=== PATIENT | male | born 1950 | race Caucasian/White ===

== ENCOUNTER → 2017-08-22 10:13 | Outpatient (CLI) | payer MEDICARE, OTHER, SELFPAY ==
--- NOTE | 2017-08-22 10:22 | CI_ITS ---
Cerebrovascular Exam Indications: Follow-up carotid 433.10. IMPRESSIONS 1. The bilateral vertebral arteries are patent with normal antegrade flow. 2. Study suggests 20-49% stenosis involving the right internal carotid artery. 3. Study suggests 50-69% stenosis involving the left internal carotid artery. Labs, prior tests, procedures, and surgery: Right endarterectomy. Labs, prior tests, procedures, and surgery: Right endarterectomy. Carotid duplex study. Complete study and Doppler flow study including spectral analysis, color and sainz scale imaging. Height: Height: 182.9cm. Height: 72in. Weight: Weight: 69.9kg. Weight: 153.7lb. Body mass index: BMI: 20.9kg/m^2. Body surface area: BSA: 1.88m^2. Location: Vascular laboratory. Patient status: Outpatient. Tables: Arterial flow: + +--------+--------+ Location V sys V ed + +--------+--------+ Right CCA - proximal 85.5cm/s 28.9cm/s + +--------+--------+ Right CCA - distal 76.7cm/s 26.4cm/s + +--------+--------+ Right ECA 264cm/s -------- + +--------+--------+ Right ICA - proximal 114cm/s 36.3cm/s + +--------+--------+ Right ICA - mid 71.2cm/s 29.5cm/s + +--------+--------+ Right ICA - distal 87.9cm/s 36.3cm/s + +--------+--------+ Right vertebral 34.2cm/s -------- + +--------+--------+ Left CCA - proximal 101cm/s 26.5cm/s + +--------+--------+ Left CCA - distal 105cm/s 32.1cm/s + +--------+--------+ Left ECA 131cm/s -------- + +--------+--------+ Left ICA - proximal 144cm/s 46.1cm/s + +--------+--------+ Left ICA - mid 93.7cm/s 37.5cm/s + +--------+--------+ Left ICA - distal 71.1cm/s 27cm/s + +--------+--------+ Left vertebral 62.9cm/s -------- + +--------+--------+ Velocity ratios: + + + + + + Right, V sys Right, V ed Left, V sys Left, V ed + + + + + + Max ICA/dist CCA 1.49 1.38 1.37 1.44 + + + + + + (Report amended ) Electronically signed by: Thiago Beckham [id number]
== END ==
PROVIDERS: Family Provider Family Medicine; PCP Family Medicine; Visit Provider Thoracic Surgery (Cardiothoracic Vascular Surgery)
DX: I65.23 Occlusion and stenosis of bilateral carotid arteries (principal)
CPT/HCPCS: 93880

== ENCOUNTER → 2018-01-16 08:14 | Outpatient (POV) | payer MEDICARE, OTHER, SELFPAY | PROVIDERS: Visit Provider Physician Assistant | DX: Z00.00 Encounter for general adult medical examination without abnormal findings (principal) ==

== ENCOUNTER → 2018-02-22 07:33 | Outpatient (CLI) | payer MEDICARE, OTHER, SELFPAY ==
[2018-02-22 09:59] LABS: Cholesterol 186 mg/dL (140-200); HDL Cholesterol 63 mg/dL (27-67); LDL Cholesterol 114 mg/dL (0-130); Thyroid Stimulating Hormone 1.62 uIU/ml (0.358-3.740); Triglycerides 43 mg/dL (30-200); VLDL Cholesterol 9 mg/dL (0-40)
== END ==
PROVIDERS: PCP Family Medicine; Visit Provider Internal Medicine Cardiovascular Disease
DX: E78.5 Hyperlipidemia, unspecified (principal); Z12.5 Encounter for screening for malignant neoplasm of prostate
CPT/HCPCS: 36415; 80061; 84443; G0103

== ENCOUNTER → 2018-04-07 09:53 | Outpatient (CLI) | payer MEDICARE, OTHER, SELFPAY ==
--- NOTE | 2018-04-07 10:06 | XR_ITS ---
XR hip RT 2-3V w/pelvis HISTORY: ITS.REASON: RIGHT HIP PAIN ORDERING PHYSICIAN: Edgar Smith MD PATIENT AGE: 68 years COMPARISON: None FINDINGS: There are mild osteoarthritic changes of the right hip with decrease in joint space medially and mild osteophyte formation along the infra aspect of the acetabulum. No acute fracture or dislocation is evident. There are multiple calcific densities overlying the scrotum and the left greater trochanteric region. IMPRESSION: Mild osteoarthritis of the right hip
--- NOTE | 2018-04-07 10:06 | XR_ITS ---
EXAM: XR lumbar spine min 4V HISTORY: ITS.REASON: RIGHT HIP PAIN ORDERING PHYSICIAN: Edgar Smith MD PATIENT AGE: 68 years COMPARISON: None FINDINGS: Normal alignment. No fracture or dislocation. No lytic or blastic change. Mild degenerative disc disease L5-S1. Mild facet arthritic changes L5-S1. Minimal lumbar curvature convex left. There are some calcific densities noted left upper quadrant and could be due to renal stones. IMPRESSION: Mild osteoarthritis. Mild facet arthritic change L5-S1. Possible left nephrolithiasis
== END ==
PROVIDERS: PCP Family Medicine; Visit Provider Family Medicine
DX: M25.551 Pain in right hip (principal); M54.5 Low back pain
CPT/HCPCS: 72110; 73502

== ENCOUNTER → 2018-08-02 10:55 | Outpatient (CLI) | payer MEDICARE, OTHER, SELFPAY ==
--- NOTE | 2018-08-02 11:01 | XR_ITS ---
XR chest 2V HISTORY: ITS.REASON: COUGH ORDERING PHYSICIAN: Isidro Fu MD PATIENT AGE: 68 years COMPARISON: None FINDINGS: There has been a prior CABG. There is normal heart size. Cardiac apex is somewhat turned. There is evidence of old granulomatous disease. No lobar consolidation or collapse is evident. No acute bony findings. IMPRESSION: No acute finding. Postsurgical changes
== END ==
PROVIDERS: PCP Family Medicine; Visit Provider Family Medicine
DX: R05 Cough (principal)
CPT/HCPCS: 71046

== ENCOUNTER → 2019-04-16 12:24 | Outpatient (CLI) | payer MEDICARE, OTHER, SELFPAY ==
[2019-04-16 14:23] LABS: Cholesterol 134 mg/dL (140-200); HDL Cholesterol 67 mg/dL (27-67); LDL Cholesterol 62 mg/dL (0-130); Triglycerides 26 mg/dL (30-200); VLDL Cholesterol 5 mg/dL (0-40)
== END ==
PROVIDERS: Visit Provider Internal Medicine Cardiovascular Disease
DX: E78.5 Hyperlipidemia, unspecified (principal)
CPT/HCPCS: 36415; 80061

== ENCOUNTER → 2019-08-07 08:07 | Outpatient (POV) | payer MEDICARE, SELFPAY | PROVIDERS: PCP Dermatology; Visit Provider Dermatology | DX: Z00.00 Encounter for general adult medical examination without abnormal findings (principal) ==

== ENCOUNTER → 2020-02-19 07:50 | Outpatient (POV) | payer MEDICARE, SELFPAY | PROVIDERS: Visit Provider Dermatology | DX: Z00.00 Encounter for general adult medical examination without abnormal findings (principal) ==

== ENCOUNTER → 2020-02-21 16:13 | Outpatient (CLI) | payer MEDICARE, SELFPAY ==
[2020-02-21 17:32] LABS: Alanine Aminotransferase 31 U/L (12-78); Albumin/Globulin Ratio 1.7 (1.1-1.8); Alkaline Phosphatase 137 U/L (38-126); Anion Gap 10.7 mEq/L (5-15); Aspartate Amino Transferase 30 U/L (17-59); Bilirubin,Total 0.9 mg/dl (0.2-1.3); Blood Urea Nitrogen 16 mg/dl (9-20); Calcium 9.3 mg/dl (8.4-10.2); Carbon Dioxide 32 mmol/L (22.0-30.0); Chloride 104 mmol/L (98-107); Chol/HDL Ratio 2.3 (1-3.5); Cholesterol 129 mg/dl (140-200); Estimated Glomerular Filt Rate 95 ml/min (>60); GFR (African American) 115 ML/MIN (>60); Globulin 2.4 g/dL (1.3-3.2); Glucose 114 mg/dl (74-100); HDL Cholesterol 57 mg/dl (40-60); Potassium 4.7 mmoL/L (3.5-5.1); Sodium 142 mmol/L (136-145); Total Protein,Serum 6.4 g/dl (6.3-8.2); Triglycerides 59 mg/dl (30-150); VLDL Cholesterol 12 mg/dL (0-40)
[2020-02-21 17:43] LABS: Direct LDL Cholesterol 70.86 mg/dL (100-129)
[2020-02-21 17:51] LABS: Ferritin 25.2 ng/ml (17.9-464)
[2020-02-21 18:04] LABS: Prostate Specific Ag Screen 2.7 ng/ml (0.0-4.0)
== END ==
PROVIDERS: Internal Medicine Cardiovascular Disease; Visit Provider Specialist
DX: E83.10 Disorder of iron metabolism, unspecified (principal); G47.61 Periodic limb movement disorder; Z79.899 Other long term (current) drug therapy; Z12.5 Encounter for screening for malignant neoplasm of prostate
CPT/HCPCS: 36415; 80053; 80061; 82728; G0103

== ENCOUNTER → 2020-08-19 08:35 | Outpatient (POV) | payer MEDICARE, OTHER, SELFPAY | PROVIDERS: Visit Provider Dermatology | DX: Z00.00 Encounter for general adult medical examination without abnormal findings (principal) ==

== ENCOUNTER → 2021-01-09 16:01 | Outpatient (CLI) | payer MEDICARE, OTHER, SELFPAY ==
[2021-01-09 17:19] LABS: Basophils # 0.1 K/mm3 (0-0.2); Basophils % 0.7 % (0.1-2.0); Eosinophils # 0.1 K/mm3 (0.0-0.4); Eosinophils % 1.2 % (0.1-12.0); Hemoglobin 16.1 g/dL (14.1-18.0); Lymphocytes # 1.9 K/mm3 (0.7-4.5); Lymphocytes % 26.4 % (10-50); Mean Corpuscular HGB Conc 34.3 g/dL (31.8-35.4); Mean Corpuscular Hemoglobin 31.3 pg (27.0-31.2); Mean Platelet Volume 7.9 fl (7.4-10.4); Monocytes # 0.5 K/mm3 (0.1-1.0); Neutrophils # 4.7 K/mm3 (1.8-7.8); Neutrophils % 64.8 % (37.0-80.0); Platelet Count 209 K/mm3 (142-424); Red Blood Count 5.16 M/mm3 (4.60-6.20); Red Cell Distribution Width 13.6 % (11.5-17.5); White Blood Count 7.2 K/mm3 (4.8-10.8)
== END ==
PROVIDERS: PCP Family Medicine; Visit Provider Physician Assistant
DX: Z20.822 Contact with and (suspected) exposure to COVID-19 (principal)
CPT/HCPCS: 85025; U0003

== ENCOUNTER → 2021-01-27 08:12 | Outpatient (POV) | payer MEDICARE, OTHER, SELFPAY | PROVIDERS: Visit Provider Dermatology | DX: Z00.00 Encounter for general adult medical examination without abnormal findings (principal) ==

== ENCOUNTER → 2021-03-12 14:44 | Outpatient (CLI) | payer MEDICARE, OTHER, SELFPAY ==
[2021-03-12 17:10] LABS: Alanine Aminotransferase 24 U/L (12-78); Albumin Level 3.9 g/dl (3.5-5.0); Albumin/Globulin Ratio 1.6 (1.1-1.8); Alkaline Phosphatase 115 U/L (38-126); Anion Gap 10.4 mEq/L (5-15); Aspartate Amino Transferase 30 U/L (17-59); Bilirubin,Total 0.8 mg/dl (0.2-1.3); Blood Urea Nitrogen 14 mg/dl (9-20); Calcium 9.3 mg/dl (8.4-10.2); Carbon Dioxide 28 mmol/L (22.0-30.0); Chloride 106 mmol/L (98-107); Chol/HDL Ratio 2.4 (1-3.5); Cholesterol 139 mg/dl (140-200); Estimated Glomerular Filt Rate 95 ml/min (>60); GFR (African American) 115 ML/MIN (>60); Globulin 2.5 g/dL (1.3-3.2); Glucose 112 mg/dl (74-100); HDL Cholesterol 57 mg/dl (40-60); Potassium 4.4 mmoL/L (3.5-5.1); Sodium 140 mmol/L (136-145); Total Protein,Serum 6.4 g/dl (6.3-8.2); Triglycerides 65 mg/dl (30-150); VLDL Cholesterol 13 mg/dL (0-40)
[2021-03-12 17:21] LABS: Direct LDL Cholesterol 69.95 mg/dL (100-129)
[2021-03-12 17:40] LABS: Prostate Specific Ag Screen 3.7 ng/ml (0.0-4.0)
== END ==
PROVIDERS: Visit Provider Internal Medicine Cardiovascular Disease
DX: I25.10 Atherosclerotic heart disease of native coronary artery without angina pectoris (principal); I73.9 Peripheral vascular disease, unspecified; K21.9 Gastro-esophageal reflux disease without esophagitis; Z12.5 Encounter for screening for malignant neoplasm of prostate
CPT/HCPCS: 36415; 80053; 80061; G0103

== ENCOUNTER → 2021-10-12 19:57 | Outpatient (CLI) | payer MEDICARE, OTHER, SELFPAY | PROVIDERS: PCP Family Medicine; Visit Provider Nurse Practitioner Family | DX: G47.33 Obstructive sleep apnea (adult) (pediatric) (principal); R06.83 Snoring; G25.81 Restless legs syndrome; G47.52 REM sleep behavior disorder | CPT/HCPCS: 95811 ==

== ENCOUNTER 2022-02-15 08:38 | Emergency (ER) | payer MEDICARE, OTHER, SELFPAY ==
[2022-02-15 08:56] VITALS: BP 121/76; PULSE 70; RESP 18; TEMP 36.7; O2SAT 97; BMI 22.0
--- NOTE | 2022-02-15 09:00 | EXP.UTC ---
Discharge Plan Disposition Patient Disposition: Home, Self-Care Condition: Good Prescriptions Prescriptions: No Action ezetimibe 10 mg tablet 10 mg PO DAILY atorvastatin 80 MG tablet 80 mg PO DAILY sucralfate 1 GM tablet 1 gm PO NEEDED PRN (Reason: stomach) omeprazole 40 MG capsule,delayed release(DR/EC) 40 mg PO DAILY wobryjn-rqdcoytiqmhvz-lqwsnzfq 1 EACH tablet 1 each PO DAILY Referrals Follow up/Referrals: Edgar Smith MD [Primary Care Provider] - See instructions Activity Restrictions/Add. Instructions Additional Instructions/Restrictions: *Monitor Temp, Over the counter Motrin or Tylenol as directed/as needed Tylenol every 4 hours and Motrin every 6 hours (as long as your family doctor has told you that you can take it) for fever or pain. and straight to ER if unable to lower temp less than 101.0 after medication given *Warm salt water gargles may help to soothe the throat *Throat Lozenges? *Warm fluids like tea with honey may help to soothe the throat? *Sleep elevated *Humidifier/Vaporizer *Flonase 2 sprays in each nostril daily but be aware that it may take 2-3 days before you notice improvement Follow up IMMEDIATELY for new or worsening symptoms or no Noticeable improvement over the next 48-72 hours. 911 for difficulty breathing or swallowing You were tested for today for COVID19 your test result should be back in the next 24-48 hours, you may check your result on the [facility] My Health Portal Make sure to take your Vitamins Vit. C Vit D and Zinc if you can take them Clinical Impressions Clinical Impression: Allergic rhinitis Instructions Patient Instructions: Allergic Rhinitis Discharge ED Provider: Elissa Villalba [facility] [place] General Stated complaint: head cold,congested Mode of Arrival: Ambulatory Source of Information: Patient Limitations: No Limitations Time Seen by Provider: 02/15/22 09:00 Description of Symptoms (Recalled from Triage Doc. by RN): pt comes in with c/o eyes watering since tuesday. HEENT Symptoms (Recalled from RN notes): Yes Resp Symptoms (Recalled from RN notes): No Skin Symptoms (Recalled from RN notes): No MS Symptoms (Recalled from RN notes): No Functional Status (Recalled from RN notes): n/a History of Present Illness Provider Complaint: Patient states he has been having watery eyes and runny nose since last week Denies fever chills or body aches States that he was around some people at a [employer] ball game and his wanted him to come in and get tested for COVID States that he has been taking Claritan and it has helped some Related Data Home Medications Medication Instructions Recorded Confirmed jcpuvxv-juqclyhdokpqh-ooajiaif 250 1 each PO DAILY prevent 11/09/17 12/17/21 mg-250 mg-65 mg tablet atorvastatin 80 mg tablet 80 mg PO DAILY Cholesterol 11/09/17 02/15/22 omeprazole 40 mg capsule,delayed 40 mg PO DAILY stomach 11/09/17 02/15/22 release sucralfate 1 gram tablet 1 gm PO NEEDED PRN stomach 11/09/17 12/17/21 ezetimibe 10 mg tablet 10 mg PO DAILY 12/18/18 12/17/21 Allergies Allergy/AdvReac Type Severity Reaction Status Date / Time No Known Allergies Allergy Verified 02/15/22 08:58 Worker's Comp Is this a Worker's Comp case?: No PFSH PFSH Social History Smoking Status: Never smoker alcohol intake: never substance use type: denies use current occupational status: retired Travel in the last 8 weeks: None household members: spouse housing: house caffeine: No ROS Obtained: Yes All systems reviewed & no additional complaints except as documented and Yes Systems reviewed as appropriate & no additional complaints except as documented Constitutional Constitutional: Reports system reviewed and no additional complaints, except as documented and Reports as per HPI Eyes Eyes: Reports other (eyes watering) ENT Ears,
[2022-02-15 09:17] VITALS: BP 121/76; PULSE 70; RESP 18; TEMP 36.7
== END 2022-02-15 09:17 | disposition home or self-care (01) ==
PROVIDERS: Emergency Provider Nurse Practitioner; PCP Family Medicine
DX: U07.1 COVID-19 (principal); J30.9 Allergic rhinitis, unspecified; H04.219 Epiphora due to excess lacrimation, unspecified lacrimal gland; Z79.1 Long term (current) use of non-steroidal anti-inflammatories (NSAID); Z79.82 Long term (current) use of aspirin; Z79.899 Other long term (current) drug therapy
CPT/HCPCS: 99213; C9803; G0463; U0003; U0005

== ENCOUNTER → 2022-03-16 14:05 | Outpatient (POV) | payer MEDICARE, OTHER, SELFPAY | PROVIDERS: Visit Provider Dermatology | DX: Z00.00 Encounter for general adult medical examination without abnormal findings (principal) ==

== ENCOUNTER → 2022-03-25 13:07 | Outpatient (CLI) | payer MEDICARE, OTHER, SELFPAY ==
[2022-03-25 14:28] LABS: Chloride 101 mmol/L (98-107); Sodium 139 mmol/L (136-145)
[2022-03-25 14:29] LABS: Potassium 4.6 mmoL/L (3.5-5.1)
[2022-03-25 14:31] LABS: Alanine Aminotransferase 42 U/L (12-78); Albumin Level 4.1 g/dl (3.5-5.0); Albumin/Globulin Ratio 2.1 (1.1-1.8); Alkaline Phosphatase 126 U/L (38-126); Anion Gap 9.6 mEq/L (5-15); Aspartate Amino Transferase 38 U/L (17-59); Bilirubin,Total 0.9 mg/dl (0.2-1.3); Blood Urea Nitrogen 14 mg/dl (9-20); Carbon Dioxide 33 mmol/L (22.0-30.0); Cholesterol 143 mg/dl (140-200); Estimated Glomerular Filt Rate 95 ml/min (>60); GFR (African American) 115 ML/MIN (>60); Total Protein,Serum 6.1 g/dl (6.3-8.2); Triglycerides 48 mg/dl (30-150); VLDL Cholesterol 10 mg/dL (0-40)
[2022-03-25 14:32] LABS: Calcium 8.9 mg/dl (8.4-10.2); Chol/HDL Ratio 2.6 (1-3.5); Glucose 140 mg/dl (74-100); HDL Cholesterol 54 mg/dl (40-60)
[2022-03-25 14:44] LABS: Direct LDL Cholesterol 71.14 mg/dL (100-129)
[2022-03-25 15:44] LABS: Prostate Specific Ag Screen 2.8 ng/ml (0.0-4.0)
== END ==
PROVIDERS: PCP Family Medicine; Visit Provider Internal Medicine Cardiovascular Disease
DX: I25.10 Atherosclerotic heart disease of native coronary artery without angina pectoris (principal); Z12.5 Encounter for screening for malignant neoplasm of prostate
CPT/HCPCS: 36415; 80053; 80061; G0103

== ENCOUNTER → 2022-04-05 09:06 | Outpatient (CLI) | payer MEDICARE, OTHER, SELFPAY ==
--- NOTE | 2022-04-05 09:36 | CT_ITS ---
FINAL REPORT TECHNIQUE: Thin section axial CT with IV contrast supplemented with multiplanar reconstruction under CT angiogram protocol. This study was performed with techniques to keep radiation doses as low as reasonably achievable (ALARA). Individualized dose reduction techniques using automated exposure control or adjustment of mA and/or kV according to the patient''s size were employed. NASCET criteria was utilized during interpretation. CLINICAL HISTORY: carotids occlusion, hx of surgery on the right carotid per patient. FINDINGS: Aortic arch: Arch shows no significant narrowing. Great vessel origins are widely patent. Right carotid: Mild calcification at the origin of the right ICA with less than 50% stenosis. Remainder of the internal carotid artery is unremarkable. Left carotid: Moderate calcification at the origin of the a internal carotid artery with less than 50% stenosis. Vertebral: Left vertebral artery is the dominant posterior circulation vessel. No significant stenosis is present. Multiple sternotomy wires are present. There is mild mucoperiosteal thickening in the right maxillary sinus. IMPRESSION: Less than 50% bilateral carotid stenosis. Reviewed, Interpreted and Dictated by Torrey Mejia MD Transcribed by Vickey Quiroz Authenticated and [facility]
== END ==
PROVIDERS: PCP Family Medicine; Visit Provider Thoracic Surgery (Cardiothoracic Vascular Surgery)
DX: I70.213 Atherosclerosis of native arteries of extremities with intermittent claudication, bilateral legs (principal)
CPT/HCPCS: 70498; Q9967

== ENCOUNTER → 2022-04-06 08:50 | Outpatient (POV) | payer MEDICARE, OTHER, SELFPAY | PROVIDERS: Visit Provider Dermatology | DX: Z00.00 Encounter for general adult medical examination without abnormal findings (principal) ==

== ENCOUNTER → 2022-04-13 10:35 | Outpatient (POV) | payer MEDICARE, OTHER, SELFPAY | PROVIDERS: Visit Provider Dermatology | DX: Z00.00 Encounter for general adult medical examination without abnormal findings (principal) ==

== ENCOUNTER → 2023-05-16 10:20 | Outpatient (CLI) | payer MEDICARE, OTHER, SELFPAY ==
[2023-05-16 11:33] LABS: Basophils % 0.7 % (0.1-2.0); Eosinophils # 0.2 K/mm3 (0.0-0.4); Eosinophils % 3.1 % (0.1-12.0); Hematocrit 48.3 % (42.0-52.0); Hemoglobin 16.6 g/dL (14.1-18.0); Lymphocytes # 1.7 K/mm3 (0.7-4.5); Lymphocytes % 32.6 % (10-50); Mean Corpuscular HGB Conc 34.4 g/dL (31.8-35.4); Mean Corpuscular Volume 93.1 fl (80-94); Mean Platelet Volume 7.2 fl (7.4-10.4); Monocytes # 0.4 K/mm3 (0.1-1.0); Monocytes % 7.2 % (1.7-9.3); Neutrophils # 2.9 K/mm3 (1.8-7.8); Neutrophils % 56.6 % (37.0-80.0); Platelet Count 184 K/mm3 (142-424); Red Blood Count 5.19 M/mm3 (4.60-6.20); White Blood Count 5.2 K/mm3 (4.8-10.8)
[2023-05-16 12:08] LABS: Albumin Level 4.1 g/dl (3.5-5.0); Albumin/Globulin Ratio 1.7 (1.1-1.8); Alkaline Phosphatase 128 U/L (38-126); Calcium 8.8 mg/dl (8.4-10.2); Chloride 101 mmol/L (98-107); Globulin 2.4 g/dL (1.3-3.2); Glucose 146 mg/dl (74-100); HDL Cholesterol 52 mg/dl (40-60); Potassium 4.5 mmoL/L (3.5-5.1); Sodium 137 mmol/L (136-145); Total Protein,Serum 6.5 g/dl (6.3-8.2)
[2023-05-16 12:10] LABS: Alanine Aminotransferase 42 U/L (12-78); Anion Gap 8.5 mEq/L (5-15); Aspartate Amino Transferase 32 U/L (17-59); Blood Urea Nitrogen 15 mg/dl (9-20); Carbon Dioxide 32 mmol/L (22.0-30.0); Chol/HDL Ratio 2.8 (1-3.5); Cholesterol 143 mg/dl (140-200); Estimated Glomerular Filt Rate 82 ml/min (>60); GFR (African American) 100 ML/MIN (>60); Triglycerides 47 mg/dl (30-150); VLDL Cholesterol 9 mg/dL (0-40)
[2023-05-16 12:38] LABS: Prostate Specific Ag Screen 3.3 ng/ml (0.0-4.0)
== END ==
PROVIDERS: PCP Family Medicine; Visit Provider Internal Medicine Cardiovascular Disease
DX: I25.10 Atherosclerotic heart disease of native coronary artery without angina pectoris (principal); Z12.5 Encounter for screening for malignant neoplasm of prostate
CPT/HCPCS: 36415; 80053; 80061; 85025; G0103